=== PATIENT | female | born 1945 | race Caucasian/White ===

== ENCOUNTER → 2016-11-30 | Outpatient (CLI) | payer MEDICARE, BC ==
[~2016-11-30] MED LIST: ALPRAZOLAM PO; AMBIEN PO; ATENOLOL PO; CELEXA PO; CYMBALTA PO; FLAGYL PO; FOCALIN2.5 MG PO; LISINOPRIL PO; LORAZEPAM1 MG PO; METFORMIN HCL500 M1 PO; TYLOX1 CAP 5/50 PO; VANCOCIN HCL250 MG PO; ZESTORETIC 20/11 TAB PO; ZETIA PO; ZOCOR PO
--- NOTE | ~2016-11-30 | US82 ---
[facility] A Service of [facility] RADIOLOGY TEXT RESULTS PATIENT: LIZBET STOKES LOCATION: CNIV : 47 UNIT #: [id number] AGE: [address]: Ye Mccarty MD SEX: F ORDER DR: [id number] [facility] [address] [place], [place] [address] [id number] O MR#: [id number] Acc #: [id number] NAME: LIZBET STOKES : 1945 SEX: F STUDY DATE/TIME: 11/30/2016 14:55 UNIT: CNIV ROOM: STUDY DESCRIPTION: US LE Art/Art Grafts Comp Chris Attending Physician: Ye Mccarty Jr., M.D. Referring Physician: Ye Mccarty Jr., M.D. Ordering Physician: Ye Mccarty Jr., M.D. Primary Care Physician: Ye Mccarty Jr., M.D. MEDICAL IMAGING REPORT This report is preliminary unless electronic signature is present EXAM Bilateral lower extremity arterial duplex. HISTORY Bilateral lower extremity pain in thighs and hips for 1 year. EXAMINATION Arterial duplex imaging of the lower extremities was performed. The right common femoral artery, superficial femoral artery, popliteal artery, posterior tibial artery, peroneal and anterior tibial arteries are patent with triphasic waveforms. No increased velocities are seen throughout. Velocity in the right common femoral artery is 177 and superficial femoral artery is 136 proximally, 107 midportion, 50 cm/sec distally, popliteal artery is 75 cm/sec. On the left side, the common femoral artery, superficial femoral artery, popliteal artery, peroneal artery, posterior tibial and anterior tibial arteries are all patent with triphasic waveforms. No areas of increased velocities are seen. Velocity in the left common carotid, left common femoral artery is 156, superficial femoral artery is 110 proximally, 222 midportion, 59 distally. Popliteal artery is 78 cm/sec. IMPRESSION Bilateral femoral, popliteal and tibial vessels are patent with no occlusions or severe stenosis. Dictated by... Shaun Coleman M.D. THIS IS AN ELECTRONICALLY VERIFIED REPORT STS. [facility] A Service of [facility] RADIOLOGY TEXT RESULTS PATIENT: LIZBET STOKES LOCATION: CNIV : [birth year] UNIT #: [id number] AGE: [address]: Ye Mccarty MD SEX: F ORDER DR: Shaun Coleman M.D. at 12/03/2016 4:39 PM /caryl TD: 12/01/2016 19:01 JOB #: [id number] MEDICAL IMAGING REPORT Page 1 of 1 COPY
== END | disposition home or self-care (01) ==
LOC: CNIV 13:45
DX: I73.9 Peripheral vascular disease, unspecified (principal); M51.9 Unspecified thoracic, thoracolumbar and lumbosacral intervertebral disc disorder
CPT/HCPCS: 93925

== ENCOUNTER → 2016-12-21 | Outpatient (CLI) | payer MEDICARE, BC ==
--- NOTE | ~2016-12-21 | US135 ---
[facility] A Service of [facility] RADIOLOGY TEXT RESULTS PATIENT: LIZBET STOKES LOCATION: CNIV : [birth year] UNIT #: [id number] AGE: [address]: Emeterio Augustine MD SEX: F ORDER DR: [id number] [facility] [address] [place], [place] [address] [id number] O MR#: [id number] Acc #: [id number] NAME: LIZBET STOKES : 1945 SEX: F STUDY DATE/TIME: 12/21/2016 13:16 UNIT: CNIV ROOM: STUDY DESCRIPTION: US U/L Ext Art Study Comp Chris Attending Physician: Emeterio Augustine M.D. Referring Physician: Emeterio Augustine M.D. Ordering Physician: Emeterio Augustine M.D. Primary Care Physician: Ye Mccarty Jr., M.D. MEDICAL IMAGING REPORT This report is preliminary unless electronic signature is present EXAM Ankle to brachial indices with segmental pressures 12/21/2016 CLINICAL HISTORY Peripheral vascular disease. FINDINGS The right brachial artery pressure is 154. The right upper thigh pressure is 146, lower thigh 159, calf 137. The right dorsalis pedis pressure is 116, with and ankle to brachial index of 0.74. The right posterior tibial pressure is 105, with ankle to brachial index of 0.67. The right digital pressure is 71, with ankle to brachial index of 0.46. The left brachial artery pressure is 156. The left upper thigh pressure is 147, lower thigh 130, calf 122. The left dorsalis pedis pressure is 102, with an ankle to brachial index of 0.65. The left posterior tibial pressure is 118, with an ankle to brachial index of 0.76. The left digital pressure is 79, with a toe index of 0.51. Pulse volume recordings demonstrate a sharp upstroke in systolic peak at all levels, and bilaterally down to the level of the ankles. The right ankle appears blunted ipsilaterally, and in comparison to the contralateral left ankle. IMPRESSION 1. The right FENG is 0.74, consistent with moderate arterial insufficiency. Pulse volume recordings suggest likely tibial disease. 2. Left FENG is 0.76, consistent with moderate arterial insufficiency. Pulse volume recordings suggest possible tibial disease. [facility]. [facility] A Service of [facility] RADIOLOGY TEXT RESULTS PATIENT: LIZBET STOKES LOCATION: CNIV : 47 UNIT #: [id number] AGE: [address]: Emeterio Augustine MD SEX: F ORDER DR: Dictated by... Timbo Amador M.D. THIS IS AN ELECTRONICALLY VERIFIED REPORT Timbo Amador M.D. at 12/24/2016 9:42 AM Janet TD: 12/21/2016 18:23 JOB #: [id number] MEDICAL IMAGING REPORT Page 1 of 1 COPY
== END | disposition home or self-care (01) ==
LOC: CNIV 12:43
DX: I73.9 Peripheral vascular disease, unspecified (principal); I35.0 Nonrheumatic aortic (valve) stenosis; E78.5 Hyperlipidemia, unspecified; I10 Essential (primary) hypertension
CPT/HCPCS: 93923